=== PATIENT | female | born 1940 | race Caucasian/White ===

== ENCOUNTER → 2016-11-13 | Outpatient (CLI) | payer MEDICARE, OTHER ==
--- NOTE | 2016-11-13 15:57 | BD ---
EXAMINATION TYPE: MG DEXA axial skeleton. DATE OF EXAM: 11/13/2016 COMPARISON: 09.29.2004 CLINICAL HISTORY: Z78.0 POST MENOPAUSAL STATE Height: 63.3 Weight: 232 FRAX RISK QUESTIONS: Alcohol (3 or more units per day): NO Family History (Parent hip fracture): NO Glucocorticoids (More than 3mos): YES (Ex: prednisone, prednisolone, methylprednisolone, dexamethasone, and hydrocortisone). History of Fracture in Adulthood: NO Secondary Osteoporosis: NO 1. Type 1 Diabetes: NO 2. Hyperthyroidism: NO 3. Menopause before 45: YES 4. Malnutrition: NO 5. Chronic liver disease: NO Rheumatoid Arthritis: NO Current Tobacco Use: NO RISK FACTORS HISTORY OF: Active: YES Diet low in dairy products/other sources of calcium: NO Postmenopausal woman: HYST AT AGE 40 Lost more than 2 inches in height since high school: YES POSSIBLY Hyperparathyroidism: NO Adrenal Insufficiency: NO MEDICATIONS: Prednisone or other steroids: SEASONAL ASTHMA, STEROID INHALER WHEN NEEDED How Long: FOR YRS Additional Medications: BP MEDS, ORAL DIABETIC MEDS, STATINS FOR CHOLESTEROL, HEART BURN MEDCATION Additional History: DIABETIC, EXAM MEASUREMENTS: Bone mineral densitometry was performed using the [employer] System. Bone mineral density as measured about the Lumbar spine is: ----- L1-L4(G/cm2): 1.318 T Score Values are as follows: ----- L1: 0.7 ----- L2: 0.7 ----- L3: 0.3 ----- L4: 2.8 ----- L1-L4: 1.1 Bone mineral density FIRST SCAN OF HER SPINE AT [facility] Bone mineral density about the R hip (g/cm2): 0.985 Bone mineral density about the L hip (g/cm2): 1.000 T Score values are as follows: -----R Neck: -0.7 -----L Neck: -0.7 -----R Total: -0.2 -----L Total: -0.1 Bone mineral density has: Decreased -11.1% since study of: 09.29.2004 FRAX %'S: THERE IS A 8.4% CHANCE OF A MAJOR OSTEOPOROTIC FX AND A 1.1% CHANCE OF A HIP FX.....PRO BABILITY IN 10/YRS TIME IMPRESSION: Normal (Values between +1 and -1 indicate normal bone mass). Consider repeating this study in 5 year s or sooner if there is some new clinical indication FOR BOTH OF HER HIPS AND HER LUMBAR SPINE. Bone density is diminished 11.1% within the bilateral hips from prior study. NOTE: T-SCORE=SD OF THE YOUNG ADULT MEAN.
== END | disposition home or self-care (01) ==
LOC: RADBDWWP 07:04
PROVIDERS: ATTEND Family Medicine
DX: Z78.0 Asymptomatic menopausal state (principal)
CPT/HCPCS: 77080

== ENCOUNTER 2017-12-02 06:32 | Day surgery (SDC) | payer MEDICARE, OTHER ==
[2017-11-30 10:54] VITALS: BMI 38.2
[~2017-12-02 06:32] MED LIST: LACTATED RINGERS 1,000 ML IV SCH
[2017-12-02] MEDS ORDERED: LACTATED RINGERS 1,000 ML IV ONE (06:45)
[2017-12-02 07:01] VITALS: RESP 16; TEMP 98.6
[2017-12-02 07:15] LABS: Glucose,Whole Blood 123 mg/dL (75-99)
[2017-12-02] MEDS ORDERED: LIDOCAINE 1% INJ 10MG/ML (20 ML MDV) ONE (07:47)
[2017-12-02] MEDS ORDERED: PROPOFOL 10 MG/ML 20 ML VIAL IV ONE (07:47)
--- NOTE | 2017-12-02 08:19 | P.PCN ---
Date of Procedure: 12/02/17 Procedure(s) Performed: Procedure: Total colonoscopy. Preoperative diagnosis: Screening for neoplasia, patient has history of polyps. Postoperative diagnosis: Exam within normal limits. Preparation: HalfLytely prep. Sedation: Was provided by anesthesia. Brief clinical history: The patient is 77-year-old female who is scheduled for this evaluation because of history of polyps. Her last exam was in 2012. She has no abdominal complaints, bleeding or anemia. Procedure: With the patient on her left lateral decubitus position and after informed consent and adequate sedation, the perianal area was inspected and it did not show any fissures or fistulas. There were no masses felt on digital rectal examination. The Olympus CFQ 160L video colonoscope was then inserted in the rectum in the usual fashion and advanced to the cecum. The preparation was less than ideal but I spent some time washing and suctioning thick fecal secretions in various areas. The mucosa appeared healthy. No obvious pathology was noted including any polyps, tumors or any obvious diverticular disease. The patient tolerated the procedure well. Plan: The patient was reassured. She will follow-up with you as planned. At her age, I did not recommend further surveillance and screening and future examinations can be kept as a contingency based on her overall course and health.
[2017-12-02 08:57] VITALS: BP 155/84; PULSE 75
== END 2017-12-02 09:27 | disposition home or self-care (01) ==
LOC: ORWHC2ENDO 06:32
DX: Z12.11 Encounter for screening for malignant neoplasm of colon (principal); Z86.010 Personal history of colon polyps; E11.9 Type 2 diabetes mellitus without complications; J45.909 Unspecified asthma, uncomplicated; K21.9 Gastro-esophageal reflux disease without esophagitis; I10 Essential (primary) hypertension; E78.5 Hyperlipidemia, unspecified; I25.2 Old myocardial infarction; Z95.5 Presence of coronary angioplasty implant and graft; Z79.84 Long term (current) use of oral hypoglycemic drugs; Z79.82 Long term (current) use of aspirin; Z79.899 Other long term (current) drug therapy; Z88.5 Allergy status to narcotic agent; Z88.1 Allergy status to other antibiotic agents
CPT/HCPCS: J2001; J2704; G0121

== ENCOUNTER → 2018-11-14 | Outpatient (CLI) | payer MEDICARE, OTHER ==
--- NOTE | 2018-11-15 18:40 | BD ---
EXAMINATION TYPE: Axial Bone Density DATE OF EXAM: 11/14/2018 COMPARISON: 11/13/2016 CLINICAL HISTORY: 78-year-old female postmenopausal screening Height: 63.5 IN Weight: 230 LBS FRAX RISK QUESTIONS: Secondary Osteoporosis: 3. Menopause before 45: YES HYSTERECTOMY BEFORE 45 RISK FACTORS HISTORY OF: Active: YES Diet low in dairy products/other sources of calcium: SOMEWHAT SEVERAL SERVINGS A WEEK Postmenopausal woman: YES Lost more than 2 inches in height since high school: POSSIBLY STATES WAS 5'6" AT ONE TIME MEDICATIONS: Additional Medications: DIABETES MEDS, BABY ASPIRIN, OCUVITE, VITAMINS, LIPITOR, JANUMET, LOSARTAN EXAM MEASUREMENTS: Bone mineral densitometry was performed using the [employer] System. Bone mineral density as measured about the Lumbar spine is: ----- L1-L4(G/cm2): 1.294 T Score Values are as follows: ----- L2: 1.0 ----- L3: 0.8 ----- L4: 1.4 ----- L1-L4: 0.9 Bone mineral density has: Decreased -1.7% since study of: 11/13/2016 Bone mineral density about the R hip (g/cm2): 0.910 Bone mineral density about the L hip (g/cm2): 0.968 T Score values are as follows: -----R Neck: -0.9 -----L Neck: -0.5 -----R Total: -0.4 -----L Total: -0.4 Bone mineral density has: Decreased -3.7% since study of: 11/13/2016 IMPRESSION: Normal (Values between +1 and -1 indicate normal bone mass). Consider repeating this study in 5 year s or sooner if there is some new clinical indication. NOTE: T-SCORE=SD OF THE YOUNG ADULT MEAN.
== END | disposition home or self-care (01) ==
LOC: RADBDWWP 09:56
PROVIDERS: ATTEND Family Medicine
DX: Z78.0 Asymptomatic menopausal state (principal)
CPT/HCPCS: 77080

== ENCOUNTER 2021-01-20 18:45 | Emergency (ER) | payer MEDICARE, OTHER ==
[2021-01-20 19:44] VITALS: BP 158/73; PULSE 62; RESP 18; TEMP 97.8
[2021-01-20] MEDS ORDERED: LIDOCAINE 1% INJ 10MG/ML (20 ML MDV) SQ ONE (20:27)
[2021-01-20] MEDS ORDERED: TOPICAL SKIN ADHESIVE 1 EACH AMP TOPICAL STA (20:28)
--- NOTE | 2021-01-20 20:30 | ED ---
General Adult HPI - General Chief complaint: Wound/Laceration Stated complaint: finger lac Time Seen by Provider: 01/20/21 20:27 Source: patient, RN notes reviewed Mode of arrival: ambulatory Limitations: no limitations - History of Present Illness Initial comments: 80-year-old female presents to the emergency room for a chief complaint of laceration. Patient was putting a mandolin and a box when she cut her fingers. Patient cut her left second and left third finger pads. States the left third finger pad is very shallow however the left second finger pad is deeper. Tetanus is up-to-date 2 years ago. Patient does not take blood thinners aside from aspirin.Patient has no other complaints at this time including shortness of breath, chest pain, abdominal pain, nausea or vomiting, headache, or visual changes. - Related Data Home Medications Medication Instructions Recorded Confirmed Felodipine [Felodipine ER] 10 mg PO DAILY 05/24/14 12/02/17 Tolterodine ER [Detrol LA] 4 mg PO DAILY 05/24/14 12/02/17 glipiZIDE [Glucotrol XL] 10 mg PO DAILY 05/24/14 12/02/17 sitaGLIPtin PHOS/metFORMIN HCL 1 tab PO BID 05/24/14 12/02/17 [Janumet 50-1,000 mg Tablet] Fexofenadine HCl 180 mg PO DAILY PRN 11/11/15 12/02/17 Multivitamins, Thera [Multivitamin] 1 tab PO DAILY 11/11/15 11/30/17 Vits A,C,E/Lutein/Minerals 1 tab PO DAILY 11/11/15 12/02/17 [Ocuvite with Lutein Tablet] Cod Liver Oil 1 each PO DAILY 11/30/17 11/30/17 Krill Oil 500 mg PO DAILY 11/30/17 11/30/17 L.acidoph,Paracasei, B.lactis 1 each PO DAILY 11/30/17 11/30/17 [Probiotic] Turmeric Root Extract [Turmeric] 500 mg PO DAILY 11/30/17 11/30/17 Previous Rx's Medication Instructions Recorded Aspirin 81 mg PO DAILY #30 chew 11/13/15 Atorvastatin [Lipitor] 80 mg PO HS #30 tab 11/13/15 Losartan [Cozaar] 25 mg PO DAILY #30 tab 11/13/15 Metoprolol Tartrate [Lopressor] 25 mg PO BID #60 tab 11/13/15 Nitroglycerin Sl Tabs [Nitrostat] 0.4 mg SUBLINGUAL Q5M PRN #25 tab 11/13/15 Allergies Allergy/AdvReac Type Severity Reaction Status Date / Time codeine Allergy stomach Verified 01/20/21 19:41 cramps Tetracyclines Allergy rash,yeast Verified 01/20/21 19:41 infection Review of Systems ROS Statement: Those systems with pertinent positive or pertinent negative responses have been documented in the HPI. ROS Other: All systems not noted in ROS Statement are negative. 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 Last Myocardial Infarction Date:: 2015 History of Any Multi-Drug Resistant Organisms: None Reported Past Surgical History: Cholecystectomy, Heart Catheterization With Stent, Hysterectomy, Orthopedic Surgery, Tonsillectomy Additional Past Surgical History / Comment(s): bilateral shoulder surgeries, colonoscopy with benign polypectomy, hemorrhoidectomy, Past Anesthesia/Blood Transfusion Reactions: No Reported Reaction, Motion Sickness Additional Past Anesthesia/Blood Transfusion Reaction / Comment(s): Pt states she had blood transfusion after childbirth. Date of Last Stent Placement:: 11/11/15 Past Psychological History: No Psychological Hx Reported Smoking Status: Never smoker Past Alcohol Use History: None Reported Past Drug Use History: None Reported - Past Family History Father History Unknown: Yes Additional Family Medical History / Comment(s): Pt states she does not know her father's history. Mother Family Medical History: Cancer Additional Family Medical History / Comment(s): Mother of lung cancer. Pt unsure at what age. Sister(s) Family Medical History: Cancer General Exam Limitations: no limitations General appearance: alert, in no apparent distress Head exam: Present: atraumatic Eye exam: Present: normal appearance, PERRL, EOMI. Absent: scleral icterus, conjunctival injection ENT exam: Present: normal exam, mucous membranes moist Neck exam: Present: normal inspection, full ROM. Absent: tenderness Respiratory exam: Present: normal lung sounds bilaterally. Absent: respiratory distress, wheezes Cardiovascular Exam: Present: regular rate, normal rhythm, normal heart sounds Extremities exam: Present: other (Patient has a 1 cm laceration of the left second digit finger pad. She has a superficial laceration of the left third digit finger pad as well. Full range of motion of all digits.) Course Vital Signs 01/20/21 19:41 Temperature 97.8 F Pulse Rate 62 Respiratory 18 Rate Blood Pressure 158/73 O2 Sat by Pulse 98 Oximetry Procedures - Laceration Laceration #1 Consent Obtained: verbal consent Indication: laceration Site: hand (Left second digit) Size (cm): 2 Description: linear Depth: simple, single layer Anesthetic Used: lidocaine 1% Anesthesia Technique: nerve block Amount (mls): 4 Pre-repair: wound explored, irrigated extensively Type of Sutures: nylon Size of Sutures: 5-0 Number of Sutures: 6 Technique: simple, interrupted Patient Tolerated Procedure: well, no complications Laceration #2 Consent Obtained: verbal consent Indication: laceration Site: hand (Left third digit) Size (cm): 1 Description: linear Depth: simple, single layer Pre-repair: wound explored, irrigated extensively Type of Sutures: other (exofin) Patient Tolerated Procedure: well, no complications Medical Decision Making - Medical Decision Making Small laceration noted of the left second digit. This was irrigated and repaired with simple interrupted sutures. A small laceration of the finger pad of the left third digit was repaired with Exofin and Steri-Strip applied. This did not require sutures and patient did not want sutures. Patient is up-to-date on tetanus. Antibiotic ointment applied. Patient will be discharged home to follow up with primary care. Return parameters and care provider as discussed. Disposition Clinical Impression: Laceration Disposition: HOME SELF-CARE Condition: Good Instructions (If sedation given, give patient instructions): Laceration (ED) Additional Instructions: Please follow up with primary care in 1-2 days. Keep clean with gentle soap and water. You may apply antibiotic ointment. Return to the emergency room for any worsening symptoms or signs of infection. return in 7-10 days for suture removal Is patient prescribed a controlled substance at d/c from ED?: No Referrals: Lavelle Marinelli MD [Primary Care Provider] - 1-2 days Time of Disposition: 21:36
--- NOTE | 2021-01-20 20:43 | XR ---
EXAMINATION TYPE: XR finger LT DATE OF EXAM: 01/20/2021 COMPARISON: NONE HISTORY: Laceration TECHNIQUE: 3 views FINDINGS: I see no fracture nor dislocation. Joint spaces are normal. There is small laceration defec t of the soft tissues at the tuft of the distal phalanx of the index finger on the lateral aspect. IMPRESSION: Small laceration defect. No fracture.
[2021-01-20] MEDS ORDERED: BACITRACIN OINT 1 EACH PACKET TOPICAL STA (21:33)
== END 2021-01-20 21:53 | disposition home or self-care (01) ==
LOC: EC 18:45
DX: S61.211A Laceration without foreign body of left index finger without damage to nail, initial encounter (principal); S61.213A Laceration without foreign body of left middle finger without damage to nail, initial encounter; J45.909 Unspecified asthma, uncomplicated; E11.9 Type 2 diabetes mellitus without complications; I10 Essential (primary) hypertension; I25.2 Old myocardial infarction; Z88.5 Allergy status to narcotic agent; Z88.1 Allergy status to other antibiotic agents; Z79.84 Long term (current) use of oral hypoglycemic drugs; Z79.899 Other long term (current) drug therapy; W27.4XXA Contact with kitchen utensil, initial encounter
CPT/HCPCS: 73140; 99283; 12002; J2001

== ENCOUNTER 2021-09-30 05:37 | Day surgery (SDC) | payer MEDICARE, OTHER ==
[2021-09-30] MEDS ORDERED: ASPIRIN 325 MG TAB PO STA (06:28)
[2021-09-30] MEDS ORDERED: ALPRAZolam 0.5 MG TAB PO PRN (06:28)
[2021-09-30] MEDS ORDERED: ALPRAZolam 0.25 MG TAB PO PRN (06:28)
[2021-09-30] MEDS ORDERED: NITROGLYCERIN SL TABS 0.4 MG TAB SUBLINGUAL PRN ×2 (06:28→09:00)
[2021-09-30] MEDS: SODIUM CHLORIDE 0.9% 1,000 ML in EMPTY BAG 1 BAG IV SCH ×2 (06:30→17:07)
[2021-09-30] MEDS ORDERED: ASPIRIN 81 MG ONE (06:38)
[2021-09-30 06:41] LABS: Glucose,Whole Blood 61 mg/dL (75-99)
[2021-09-30] MEDS ORDERED: fentaNYL (PF) 50 MCG/ML 2 ML AMP ONE (06:59)
[2021-09-30] MEDS ORDERED: BENZOCAINE SPRAY 1 CAN MUCOUS MEM ONE (07:15)
[2021-09-30] MEDS ORDERED: IV FLUID CONTINUATION 1,000 ML IV ONE (07:17)
[2021-09-30] MEDS ORDERED: VERAPAMIL 2.5 MG/ML 2 ML AMP ONE (07:20)
[2021-09-30] MEDS ORDERED: MIDAZOLAM 2 MG/2 ML VIAL IV ONE ×2 (07:24→07:26)
[2021-09-30] MEDS ORDERED: fentaNYL (PF) 50 MCG/ML 2 ML AMP IV ONE (07:24)
[2021-09-30] MEDS ORDERED: HEPARIN SODIUM 1,000 UN/ML (10ML VL) ONE (07:41)
--- NOTE | 2021-09-30 07:44 | P.PCN ---
Date of Procedure: 09/30/21 Description of Procedure: Indication: Evaluation for aortic valve Procedure Description: After explaining the procedure to the patient, it's risk and complications, blood pressure, heart rate and O2 saturation were monitored. The throat was sprayed with Cetacaine. Patient received 3 mg intravenous Versed, 50 mcg intravenous fentanyl. The probe was introduced into the esophagus without difficulty. Images were obtained. Following that, the probe was removed. There was no immediate complication. Findings: Left atrial size is mildly dilated, left atrial appendage is normal. Left ventricle size is normal. Inferior wall hypokinesis was noted. Ejection fraction estimated at 45-50%. Mitral annulus calcification was noted. The aortic valve is severely calcified with decreased opening by planimetry the aortic valve area is 0.6 - 0.9 cm. Descending thoracic aorta appears to be normal. No pericardial effusion was noted. Contrast bubble study revealed no shunting across the intra-atrial septum. Doppler: Pulse wave and color Doppler were obtained and revealed mild to moderate mitral and aortic regurgitation with mild tricuspid regurgitation. The peak gradient across the aortic valve was 71 to mercury with a mean of 47 mmHg. There was no shunting by color Doppler study. Conclusion: 1. Dilated left atrium 2. Normal left ventricle size with mild systolic dysfunction and segmental wall motion abnormality 3. Severe aortic stenosis with [id number] aortic regurgitation 4. [id number] mitral was mild tricuspid regurgitation 5. No shunting across the intra-atrial septum
[2021-09-30] MEDS ORDERED: LIDOCAINE 1% INJ 10MG/ML (30 ML VIAL-PF) SQ ONE ×2 (08:06→08:07)
[2021-09-30] MEDS: LIDOCAINE 1% INJ 10MG/ML (30 ML VIAL-PF) SQ ONE ×2 (08:07→08:09)
[2021-09-30] MEDS ORDERED: VERAPAMIL SYRINGE (5 MG/10 ML) INTRAARTER ONE (08:08)
[2021-09-30] MEDS: HEPARIN SODIUM 1,000 UN/ML (10ML VL) IV ONE ×2 (08:22→08:30)
[2021-09-30 08:31] LABS: O2 Sat Blood Gas 71.8 %
[2021-09-30] MEDS ORDERED: CLOPIDOGREL 75 MG TAB ONE (08:31)
[2021-09-30 08:32] LABS: O2 Sat Blood Gas 95.7 %
[2021-09-30 08:33] LABS: O2 Sat Blood Gas 73.4 %
[2021-09-30] MEDS ORDERED: CLOPIDOGREL 75 MG TAB PO ONE (08:33)
[2021-09-30] MEDS ORDERED: IOPAMIDOL-370 125ML BTL INJ ONE (08:52)
[2021-09-30] MEDS ORDERED: SODIUM CHLORIDE 0.9% 1,000 ML in EMPTY BAG 1 BAG IV SCH (09:00)
[2021-09-30] MEDS ORDERED: MAG HYDROX/AL HYDROX/SIMETH 30 ML CUP PO PRN (09:00)
[2021-09-30] MEDS ORDERED: ATROPINE SULFATE 0.1 MG/ML 10ML SYRINGE IV PRN (09:00)
[2021-09-30] MEDS ORDERED: ZOLPIDEM 5 MG TAB PO PRN (09:00)
[2021-09-30] MEDS ORDERED: RX INFO: IV CONTRAST WAS GIVEN 1 EACH MISC MISCELLANE PRN (09:00)
--- NOTE | 2021-09-30 09:13 | P.CARDCATH ---
Date of Procedure: 09/30/21 Description of Procedure: Cardiac Catheterization: The patient is an 81-year-old female with a known history of CAD who was found to have progressive severe aortic stenosis with symptoms of progressive dyspnea. Recommendations were made regarding cardiac catheterization, the risks and the complications were discussed with the patient who is in full understanding and agreement. 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 Using Xylocaine Anesthesia and Seldinger technique, a 6-Azeri sheath was introduced in the right radial artery . Using the guidewire exchange technique the venous sheath in the right brachial vein was exchanged to a 6-Azeri sheath. Right heart catheterization was performed using [place]-Damien catheter, multiple pressure and samples were obtained. Cardiac output by thermodilution was calculated. Subsequently, selective coronary angiography performed using a 5-Azeri 3.5 bend left Zeus and Humberto catheter. Multiple views of the coronary artery incl uding hemiaxial views were obtained. The Humberto catheter was used to cross the aortic valve and LVEDP was calculated. Following that, catheter were removed. Of note, the patient received a total of 5000 units of intravenous heparin as well as intra-arterial verapamil. There was no immediate complications. Findings: Fluoroscopy: Severe calcification of the aortic valve was noted Left main: This is a large size vessel, bifurcating into left anterior descending and left circumflex, left main has no high-grade stenosis LAD: This is a size vessel, reaching to the apex with a wrap around the apex segment. The LAD has 30-40% plaque in the midsegment. It is calcified. Left circumflex: This is a nondominant vessel, giving rise to 3 obtuse marginal branch. The second obtuse marginal branch is subtotally occluded with slow distal flow RCA: This is a dominant vessel, moderate in caliber. Bifurcating into PDA and PLV. The stented segment proximally is patent with no significant in-stent restenosis. The mid RCA has a 50% plaque aggressive the vessel has no high- grade stenosis [Left] Ventriculogram: Was not performed Hemodynamics: Cardiac output by Danna 7.5 L/m, by thermodilution 4.2. Pulmonary artery saturation 72%, right atrium 73%, arterial 96%. Pulmonary artery systolic pressure of 40 with a diastolic of 25 and a mean of 34 mmHg. Pulmonary capillary wedge pressure A wave of 22 V wave of 24 with a mean of 25 mmHg. Right ventricle systolic pressure 40, end-diastolic of 12 mmHg. Right atrium A wave of 9, V wave of 10 with a mean of 10 mmHg. LVEDP 25 mmHg. Left ventricle systolic pressure 195 mmHg with the ascending aortic pressure of 150 mmHg. Aortic valve area 0.53 cm. Conclusion: 1. Severe calcified aortic stenosis. 2. Patent stents in the RCA with mild to moderate disease in the midsegment of the right coronary artery 3. Subtotally occluded OM 2 4. Mild to moderate disease in the LAD Recommendations: I have recommended to proceed with angioplasty and stenting of the left circumflex OM 2. The procedure as well as the risks and the complications were discussed with the patient who was in full understanding and agreement.
--- NOTE | 2021-09-30 09:17 | P.CARDCATH ---
Date of Procedure: 09/30/21 Description of Procedure: PERCUTANEOUS TRANSLUMINAL CORONARY ANGIOPLASTY CLINICAL INFORMATION: The patient is an 81-year-old female with a known history of coronary disease who presented with progressive severe aortic stenosis, underwent cardiac catheterization and was found to have severe stenosis in the OM 2 Recommendations were made regarding coronary angioplasty and stenting. The procedure as well as the risks and the complications were discussed with the patient who was in full understanding and agreement. PROCEDURE: A 6 Bulgarian FL 3-1/2 guiding catheter was introduced into the system. After cannulating the left main, a 0.014 BMW was advanced across the lesion with the help of straight supra cross microcatheter and positioned distally. Following that a 2.25 x 12 mm Treck was advanced and one inflation at 8 saumya was done. Following that a 2.25 x 15 stent was deployed. It was dilated at 16. After the last inflation, after appropriate wait, the balloon and the guidewire were withdrawn back into the guiding catheter. Images were obtained and repeated. Those images reveal stable successful stenting. At that point, the guiding catheter, the balloon, and guidewire were removed. The sheath was removed. Hemostasis was obtained with and deployment of a TR band and compression of the right brachial vein. There were no immediate complications. The patient was returned to the room in stable condition. Of note, the patient received additional 2000 units of heparin as well as Plavix. She had no chest discomfort or EKG changes with the inflations. Her ACT was monitored RESULTS: Successful stenting of the obtuse marginal 2 with reduction of stenosis from 99 % to 0 %. RECOMMENDATIONS: Patient will continue on dual antiplatelet treatment with aspirin and Plavix for 6 months. She'll be evaluated for aortic valve replacement in view of the severe aortic stenosis. The findings and recommendations were discussed with the patient and her family and they are in full understanding and agreement. Duration of sedation 48 minutes.
[2021-09-30] MEDS: ASPIRIN 81 MG PO SCH (10:51)
[2021-09-30 12:12] VITALS: BMI 37.0
[2021-09-30] MEDS ORDERED: ATORVASTATIN 80 MG TAB PO SCH (21:00)
[2021-09-30] MEDS: METOPROLOL TARTRATE 25 MG TAB PO SCH (21:41)
[2021-10-01] MEDS: SODIUM CHLORIDE 0.9% 1,000 ML in EMPTY BAG 1 BAG IV SCH (02:02)
--- NOTE | 2021-10-01 07:17 | P.PN ---
Subjective Progress Note Date: 10/01/21 PROGRESS NOTE The patient is an 81-year-old female with a known history of coronary disease aortic stenosis who presented with symptoms of progressive dyspnea. Underwent cardiac catheterization and CAMERON, was found to have severe aortic stenosis was subtotally occluded OM 2. She underwent stenting of the OM in preparation for aortic valve replacement. She's feeling well this morning, denies any chest discomfort dizziness or palpitations. She continues to be on aspirin, Glucotrol, felodipine 10 mg daily, Plavix 75 mg daily, Lipitor 80 mg daily, losartan 25 mg a day. PHYSICAL EXAMINATION: Blood pressure 140/70 heart rate 60 LUNGS: Clear to auscultation HEART: Regular rate and rhythm, S1, S2. No S3. systolic murmur ejection murmur 3/6 at the base ABDOMEN: Soft, nontender, no organomegaly EXTREMETIES: No edema, right radial pulse intact, small ecchymosis in the brachial area LAB: Pending IMPRESSION: 1. Status post stenting of the left circumflex obtuse marginal branch 2 2. Moderate disease in the LAD and the RCA 3. Severe aortic stenosis 4. Hypertension PLAN: The patient will be discharged home today, she'll be followed as an outpatient and further evaluated in regard to her aortic valve disease. The findings and recommendations were discussed with the patient and she is in understanding and agreement. Objective - Vital Signs Vital signs: Vital Signs Temp 98.2 F 10/01/21 00:31 Pulse 95 10/01/21 00:31 Resp 17 10/01/21 02:00 BP 170/56 10/01/21 00:31 Pulse Ox 95 10/01/21 00:31 FiO2 Intake & Output 09/30/21 10/01/21 10/01/21 18:59 06:59 18:59 Intake Total 270 118 Balance 270 118 Weight 100.9 kg Intake: IV 270 Intake, IV Titration 0 Amount IV Fluid Continuation 1, 0 000 ml @ 0 mls/hr IV .STK -MED ONE Rx#:[id number] Oral 118 Other: Voiding Method Toilet # Voids 2
[2021-10-01 07:46] LABS: African American GFR (CKD) 47 (>60 ml/min/1.73 sqM); Anion Gap 7 mmol/L; Blood Urea Nitrogen 21 mg/dL (7-17); Calcium 8.5 mg/dL (8.4-10.2); Carbon Dioxide 22 mmol/L (22-30); Chloride 109 mmol/L (98-107); Glucose 96 mg/dL (74-99); Non-African American GFR(CKD) 41 (>60 ml/min/1.73 sqM); Potassium 4.3 mmol/L (3.5-5.1); Sodium 138 mmol/L (137-145)
[2021-10-01] MEDS: METOPROLOL TARTRATE 25 MG TAB PO SCH (08:13)
[2021-10-01] MEDS: ASPIRIN 81 MG PO SCH (08:13)
[2021-10-01] MEDS ORDERED: amLODIPine 10 MG TAB PO SCH (09:00)
[2021-10-01] MEDS ORDERED: LOSARTAN 25 MG TAB PO SCH (09:00)
[2021-10-01] MEDS ORDERED: CLOPIDOGREL 75 MG TAB PO SCH (09:00)
[2021-10-01] MEDS ORDERED: glipiZIDE 5 MG TAB PO SCH (09:00)
[2021-10-01] MEDS ORDERED: OXYBUTYNIN 10 MG TAB.ER.24 PO SCH (09:00)
[2021-10-01 09:01] VITALS: BP 171/75; PULSE 63; RESP 20; TEMP 97.7
== END 2021-10-01 11:30 | disposition home or self-care (01) ==
LOC: CATHCVL 05:37 → 6NMEDSUR 08:53 → CATHCVL 10-01 11:30
PROVIDERS: ATTEND Internal Medicine Interventional Cardiology
DX: I08.2 Rheumatic disorders of both aortic and tricuspid valves (principal); I25.10 Atherosclerotic heart disease of native coronary artery without angina pectoris; I25.5 Ischemic cardiomyopathy; E11.22 Type 2 diabetes mellitus with diabetic chronic kidney disease; I12.9 Hypertensive chronic kidney disease with stage 1 through stage 4 chronic kidney disease, or unspecified chronic kidney disease; N18.9 Chronic kidney disease, unspecified; E78.2 Mixed hyperlipidemia; E78.00 Pure hypercholesterolemia, unspecified; Z95.5 Presence of coronary angioplasty implant and graft; Z20.822 Contact with and (suspected) exposure to COVID-19; Z87.891 Personal history of nicotine dependence; Z79.899 Other long term (current) drug therapy; Z79.82 Long term (current) use of aspirin; Z79.84 Long term (current) use of oral hypoglycemic drugs; Z88.1 Allergy status to other antibiotic agents; Z90.710 Acquired absence of both cervix and uterus; Z90.49 Acquired absence of other specified parts of digestive tract; Z98.890 Other specified postprocedural states
CPT/HCPCS: 93312; 93320; 93325; 93460; 80048; 85018; 82810; 87635; C9600; C1769 ×3; C1887 ×2; C1894; C1725; C1751; C1874; J2250; J2001; J3010; J1644; Q9967

== ENCOUNTER 2021-10-16 07:02 | Outpatient (CLI) | payer MEDICARE, OTHER ==
[2021-10-16 07:27] VITALS: BP 185/78; RESP 16; TEMP 97.9
[2021-10-16 07:40] LABS: Glucose,Whole Blood 92 mg/dL (70-110)
[2021-10-16 08:15] LABS: Basophils # (A) 0.1 k/uL (0-0.2); Basophils % (A) 1 %; Eosinophils # (A) 0.4 k/uL (0-0.7); Eosinophils % (A) 4 %; HCT 40.5 % (34.0-46.0); HGB 13.1 gm/dL (11.4-16.0); Lymphocytes # (A) 3.1 k/uL (1.0-4.8); Lymphocytes % (A) 33 %; MCH 30.5 pg (25.0-35.0); MCHC 32.3 g/dL (31.0-37.0); MCV 94.5 fL (80.0-100.0); Mean Platelet Volume 8.8; Monocytes # (A) 0.5 k/uL (0-1.0); Monocytes % (A) 6 %; Neutrophils # (A) 5.3 k/uL (1.3-7.7); Neutrophils % (A) 55 %; Platelet Count 300 k/uL (150-450); RBC 4.28 m/uL (3.80-5.40); RDW 13.4 % (11.5-15.5); WBC 9.5 k/uL (3.8-10.6)
[2021-10-16 08:21] LABS: ALT 19 U/L (4-34); AST 22 U/L (14-36); African American GFR (CKD) 37 (>60 ml/min/1.73 sqM); Albumin/Globulin Ratio 1.4; Alkaline Phosphatase 82 U/L (38-126); Anion Gap 12 mmol/L; Appearance,Urine Clear (Clear); Bilirubin,Urine Negative (Negative); Blood Urea Nitrogen 30 mg/dL (7-17); Blood,Urine Negative (Negative); Calcium 8.9 mg/dL (8.4-10.2); Carbon Dioxide 26 mmol/L (22-30); Chloride 103 mmol/L (98-107); Color,Urine Yellow; Globulin 2.8 g/dL; Glucose 99 mg/dL (74-99); Glucose,Urine (UA) Negative (Negative); Ketones,Urine Negative (Negative); Leukocyte Esterase,Urine Negative (Negative); Magnesium 1.2 mg/dL (1.6-2.3); Nitrite,Urine Negative (Negative); Non-African American GFR(CKD) 32 (>60 ml/min/1.73 sqM); Potassium 3.9 mmol/L (3.5-5.1); Protein,Urine Negative (Negative); Sodium 141 mmol/L (137-145); Specific Gravity,Urine 1.018 (1.001-1.035); Total Bilirubin 0.4 mg/dL (0.2-1.3); Total Protein 6.8 g/dL (6.3-8.2); Urobilinogen,Urine <2.0 mg/dL (<2.0)
[2021-10-16 08:36] LABS: Partial Thromboplastin Time 23.1 sec (22.0-30.0); Prothrombin Time 10.7 sec (9.0-12.0)
[2021-10-16 10:50] LABS: Hepatitis A Antibody IgM Nonreactive (Nonreactive); Hepatitis B Core IgM Nonreactive (Nonreactive); Hepatitis B Surface Antigen Nonreactive (Nonreactive); Hepatitis C IgG Antibody Nonreactive (Nonreactive)
--- NOTE | 2021-10-16 12:29 | US ---
EXAMINATION TYPE: US carotid duplex BILAT DATE OF EXAM: 10/16/2021 COMPARISON: NONE CLINICAL HISTORY: aortic valve. EXAM MEASUREMENTS: RIGHT: Peak Systolic Velocity (PSV) cm/sec ----- Right CCA: 74.7 ----- Right ICA: 53.1 ----- Right ECA: 63.7 ICA/CCA ratio: 0.7 RIGHT: End Diastole cm/sec ----- Right CCA: 9.7 ----- Right ICA: 6.1 ----- Right ECA: 2.5 LEFT: Peak Systolic Velocity (PSV) cm/sec ----- Left CCA: 70.2 ----- Left ICA: 66.2 ----- Left ECA: 56.1 ICA/CCA ratio: 0.9 LEFT: End Diastole cm/sec ----- Left CCA: 6.6 ----- Left ICA: 10.6 ----- Left ECA: 0.0 VERTEBRALS (direction of flow): Right Vertebral: Antegrade Left Vertebral: Antegrade Rhythm: Normal No significant stenosis . No significant plaquing or intimal thickening is evident. IMPRESSION: 1. No significant flow-limiting stenosis based on velocities. Criteria for Assigning % of Stenosis / Diameter reduction (Estimation based on the indirect measurements of the internal carotid artery velocities (ICA PSV). 1. Normal (no stenosis)=ICA PSV < 125 cm/s: ratio < 2.0: ICA EDV<40 cm/s. 2. Less than 50% stenosis=ICA PSV < 125 cm/s: ratio < 2.0: ICA EDV<40 cm/s. 3. 50 to 69% stenosis=ICA PSV of 125 to 230 cm/s: ration 2.0 ? 4.0: ICA EDV 40-100 cm/s. 4. Greater than 70% stenosis to near occlusion= ICA PSV > 230 cm/s: ratio > 4.0: ICA EDV > 100 cm/s. 5. Near occlusion= ICA PSV velocities may be low or undetectable: variable ratio and ICA EDV. 6. Total occlusion=unable to detect flow.
--- NOTE | 2021-10-16 13:19 | CT ---
EXAMINATION TYPE: CT TAVR Planning DATE OF EXAM: 10/16/2021 HISTORY: Nonrheumatic aortic insufficiency CT DLP: 2775.3 mGycm Automated Exposure Control for Dose Reduction was Utilized. CONTRAST: CT scan of the chest, abdomen and pelvis is performed with IV Contrast, patient injected with 125 mL of Isovue 370. COMPARISON: No previous CT scan is available for comparison TECHNIQUE: Helical imaging obtained through the chest, abdomen and pelvis during arterial phase alexander arabella administration of radiographic contrast intravenously. 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 Underlying lesion cannot be excluded. Right thyroid lobe hypodensities, for correlation with thyroid ultrasound results. Lungs: Bilateral lower lobe peripheral pulmonary articulations. Central Airway: No significant findings Pleura: No significant findings Pulmonary Arteries: No significant findings Heart and Pericardium: Dilated left atrium and left ventricle. Coronary and arterial atherosclerotic calcifications. Normal branching anatomy of the aortic arch. Lymph Nodes: No pathologically enlarged lymph nodes. Mediastinum & Esophagus: No significant findings ABDOMEN/PELVIS: Please note arterial phase of the imaging limits detailed evaluation of the solid abdominal organs. Liver: No significant findings Spleen: No significant findings Kidneys: Questionable right renal cyst without suspicious feature. Adrenal Glands: No significant findings Pancreas: 16 mm cyst is seen in the uncinate process of the pancreas which could represent an IPMN. T his can be further assessed by MRI of the pancreas. Gallbladder: Previous cholecystectomy. Bowel and Mesentery: No significant findings Lymph Nodes: No significant findings Urinary Bladder: No significant findings Pelvic Organs: Previous hysterectomy. No gross adnexal mass. Other: Scattered arterial atherosclerotic calcifications. Focal stenosis of the proximal portion of t he superior mesenteric artery yet patent distally. Degenerative changes of the visualized spine. Other Lines/Tubes/Devices/Hardware: Dental work is noted. IMPRESSION: Preoperative planning CT demonstrating incidental findings and recommendations as detaile d above.
[2021-10-16 14:31] LABS: Chol/HDL Ratio 2.65 Ratio; LDL Cholesterol,Calculated 66.9 mg/dL (0.0-131.0); VLDL Calculation 19.04 mg/dL (5.00-40.00)
== END 2021-10-16 15:21 | disposition home or self-care (01) ==
LOC: LABWHC1 07:02
PROVIDERS: ATTEND Thoracic Surgery (Cardiothoracic Vascular Surgery)
DX: Z01.818 Encounter for other preprocedural examination (principal); I35.0 Nonrheumatic aortic (valve) stenosis; R55 Syncope and collapse; E87.8 Other disorders of electrolyte and fluid balance, not elsewhere classified; R58 Hemorrhage, not elsewhere classified; E07.9 Disorder of thyroid, unspecified; R35.0 Frequency of micturition; E11.9 Type 2 diabetes mellitus without complications; N28.9 Disorder of kidney and ureter, unspecified; E78.5 Hyperlipidemia, unspecified; Z79.01 Long term (current) use of anticoagulants; Z79.899 Other long term (current) drug therapy
CPT/HCPCS: 94150; 84439; 83880; 80061; 80053; 80074; 84443; 83735; 85025; 85610; 85730; 81003; 87086; 83036; 93880; 71275; 74174; 36415; Q9967

== ENCOUNTER → 2022-10-16 | Outpatient (CLI) | payer MEDICARE, OTHER ==
[2022-10-16 16:11] LABS: INR 0.9 (<1.2); Prothrombin Time 10.1 sec (9.0-12.0)
[2022-10-16 16:20] LABS: Partial Thromboplastin Time 21.3 sec (22.0-30.0)
[2022-10-16 21:18] LABS: ALT 16 U/L (8-44); AST 17 U/L (13-35); Albumin 4.1 d/dL (3.8-4.9); Albumin/Globulin Ratio 1.58 Ratio (1.60-3.17); Alkaline Phosphatase 83 U/L (41-126); Blood Urea Nitrogen 33.6 mg/dL (9.0-27.0); Calcium 9.7 mg/dL (8.7-10.3); Carbon Dioxide 21.2 mmol/L (21.6-31.8); Chloride 105 mmol/L (96-109); Globulin 2.6 d/dL (1.6-3.3); Glucose 73 mg/dL (70-110); Potassium 5.2 mmol/L (3.5-5.5); Sodium 144 mmol/L (135-145); Total Bilirubin 0.3 mg/dL (0.3-1.2); Total Protein 6.7 d/dL (6.2-8.2)
[2022-10-16 21:38] LABS: Basophils # (A) 0.07 X 10*3/uL (0.00-0.10); Basophils % (A) 0.8 %; Eosinophils # (A) 0.34 X 10*3/uL (0.04-0.35); Eosinophils % (A) 3.7 %; HCT 40.2 % (37.2-46.3); HGB 12.6 d/dL (12.0-15.0); Lymphocytes # (A) 1.73 X 10*3/uL (0.90-5.00); Lymphocytes % (A) 18.7 %; MCH 29.9 pg (27.0-32.0); MCHC 31.3 d/dL (32.0-37.0); MCV 95.5 FL (80.0-97.0); Mean Platelet Volume 11.5 FL (9.5-12.2); Monocytes # (A) 0.69 X 10*3/uL (0.20-1.00); Monocytes % (A) 7.5 %; NRBC Per 100 WBC 0 X 10*3/uL (0.00-0.01); Neutrophils # (A) 6.39 X 10*3/uL (1.80-7.70); Neutrophils % (A) 68.9 %; Platelet Count 299 X 10*3/uL (140-440); RBC 4.21 X 10*6/uL (4.10-5.20); RDW 13.7 % (11.5-14.5); WBC 9.26 X 10*3/uL (4.50-10.00)
== END | disposition home or self-care (01) ==
LOC: LABPAT 12:36
PROVIDERS: ATTEND Thoracic Surgery (Cardiothoracic Vascular Surgery)
DX: Z01.812 Encounter for preprocedural laboratory examination (principal); Z51.81 Encounter for therapeutic drug level monitoring; I10 Essential (primary) hypertension; I35.0 Nonrheumatic aortic (valve) stenosis; Z79.899 Other long term (current) drug therapy; Z79.01 Long term (current) use of anticoagulants; E11.9 Type 2 diabetes mellitus without complications; R00.1 Bradycardia, unspecified; R94.31 Abnormal electrocardiogram [ECG] [EKG]
CPT/HCPCS: 80053; 85025; 85610; 85730; 93005

== ENCOUNTER 2022-10-21 05:34 | Inpatient (IN) | payer MEDICARE, OTHER ==
[2022-10-21] MEDS ORDERED: INSULIN REGULAR 100 UNIT in SODIUM CHLORIDE 0.9% 100 ML IV PRN (06:00)
[2022-10-21] MEDS ORDERED: PROTAMINE SULFATE 250 MG in EMPTY BAG 1 BAG IV PRN (06:00)
[2022-10-21] MEDS ORDERED: LACTATED RINGERS 1,000 ML IV SCH ×2 (06:00→09:54)
[2022-10-21] MEDS ORDERED: METOPROLOL TARTRATE 25 MG TAB PO ONE (06:00)
[2022-10-21] MEDS ORDERED: CLOPIDOGREL 75 MG TAB PO ONE (06:00)
[2022-10-21] MEDS ORDERED: CLEVIDIPINE BUTYRATE 25 MG in EMPTY BAG 1 BAG IV PRN (06:00)
[2022-10-21] MEDS ORDERED: ASPIRIN 325 MG TAB PO ONE (06:00)
[2022-10-21] MEDS ORDERED: TRANEXAMIC ACID 2,000 MG in SODIUM CHLORIDE 0.9% 80 ML IV PRN (06:00)
[2022-10-21] MEDS ORDERED: ATORVASTATIN 10 MG TAB PO ONE (06:00)
[2022-10-21] MEDS ORDERED: NITROGLYCERIN-D5W PMX 25 MG/250 ML BTL IV PRN (06:00)
[2022-10-21] MEDS ORDERED: ELECTROLYTE-A SOLUTION 1,000 ML with POTASSIUM CHLORIDE 100 MEQ, MAGNESIUM SULFATE 16 M... IV PRN ×5 (06:00)
[2022-10-21] MEDS ORDERED: SODIUM CHLORIDE 0.9% 500 ML 500 ML INTRAARTER PRN (06:00)
[2022-10-21 06:34] LABS: Glucose,Whole Blood 93 mg/dL (70-110)
[2022-10-21] MEDS ORDERED: SODIUM CHLORIDE 0.9% 1,000 ML IV ONE (06:37)
[2022-10-21] MEDS ORDERED: MIDAZOLAM 2 MG/2 ML VIAL ONE (07:45)
[2022-10-21] MEDS ORDERED: PROTAMINE SULFATE 10 MG/ML 5 ML VIAL IV ONE (07:45)
[2022-10-21] MEDS ORDERED: fentaNYL (PF) 50 MCG/ML 2 ML AMP ONE (07:45)
[2022-10-21] MEDS ORDERED: ROCURONIUM 10 MG/ML (5 ML VIAL) IV ONE (07:45)
[2022-10-21] MEDS ORDERED: GLYCOPYRROLATE 0.2 MG/ML 2 ML VIAL ONE (07:45)
[2022-10-21] MEDS ORDERED: NEOSTIGMINE 1 MG/ML 10 ML VIAL ONE (07:45)
[2022-10-21] MEDS ORDERED: LIDOCAINE 2% INJ 20 MG/ML (2 ML VIAL) ONE (07:45)
[2022-10-21] MEDS ORDERED: SUCCINYLCHOLINE CHLORIDE 200 MG/10 ML VIAL IV ONE (07:45)
[2022-10-21] MEDS ORDERED: HEPARIN SODIUM,PORCINE 10,000 UNIT/ML 1 ML VIAL ONE (07:45)
[2022-10-21] MEDS ORDERED: PROPOFOL 10 MG/ML 20 ML VIAL IV ONE (07:45)
[2022-10-21] MEDS ORDERED: IOPAMIDOL-250 100ML BTL INTRAARTER ONE (08:57)
[2022-10-21] MEDS ORDERED: IOPAMIDOL-370 100ML BTL INJ ONE (09:07)
--- NOTE | 2022-10-21 09:19 | P.ANPRN ---
Procedure Note - Anesthesia - CAMERON Intraop Pre Bypass CAMERON Intraop - Anesthesia Indication: aortic stenosis Date of Procedure: 10/21/22 Pre-operative Diagnosis: Aortic Stenosis Post-operative Diagnosis: Aortic Stenosis s/p TAVR Surgeon: Zackary Betancur Left Ventricle: mild LVH Ejection Fraction: Other (40-45) Regional Wall Motion Abnormalities: Other (mild inferior hypokinesis) Left Ventricle Hypertrophy: Yes (mild) Right Ventricle: wnl R. Ventricle Function: Normal Aortic Valve: p 74 mean 39 CLAUDIA 0.4 Severe stenosis Anatomy: Trileaflet Aortic Stenosis: Severe Aortic Regurgitation: Moderate Mitral Stenosis: None Mitral Regurgitation: Moderate Tricuspid Stenosis: None Tricuspid Regurgitation: Trace Pulmonic Stenosis: None Pulmonic Regurgitation: None Aortic Dissection: No Plural Effusion: None
--- NOTE | 2022-10-21 09:21 | P.ANPRN ---
Procedure Note - Anesthesia - CAMERON Intraop Post Bypass CAMERON Intraop Post Bypass Procedure Performed: TAVR Left Ventricle: unchanged Ejection Fraction: Other (unchanged 40-45%) Regional Wall Motion Abnormalities: Other (unchanged mild inferior hypokinesis) R. Ventricle Function: Normal Aortic Valve: m5 peak 9 deployed aortic valve with good valve opening Mitral Valve: Unchanged Tricuspid: Unchanged Pulmonic: Unchanged Aortic Dissection: No
[2022-10-21 09:31] LABS: Glucose,Whole Blood 103 mg/dL (70-110)
[2022-10-21] MEDS ORDERED: DEXTROSE 50% SYRINGE 50 ML IVP PRN ×2 (09:54)
[2022-10-21] MEDS ORDERED: IPRATROPIUM-ALBUTEROL 3 ML NEB INHALATION PRN (09:54)
[2022-10-21] MEDS ORDERED: ACETAMINOPHEN TAB 325 MG TAB PO PRN (09:54)
[2022-10-21] MEDS ORDERED: ONDANSETRON 4 MG/2 ML VIAL IVP PRN (09:54)
--- NOTE | 2022-10-21 10:00 | XR ---
EXAMINATION TYPE: XR chest 1V DATE OF EXAM: 10/21/2022 9:48 AM COMPARISON: Chest radiographs from 11/11/2015 TECHNIQUE: XR chest 1V Frontal view of the chest. CLINICAL INDICATION:Female, 82 years old with history of Line placement; FINDINGS: Lungs/Pleura: No evidence of focal consolidation or pneumothorax. Blunting of the costophrenic angles is present. Pulmonary vascularity: Unremarkable. Heart/mediastinum: Cardiomediastinal silhouette is enlarged and stable. Post aortic valve repair vamshi nges. Atherosclerosis of the aortic arch. Musculoskeletal: No acute osseous pathology. Other findings: None Lines/Tubes: Cardiac conduction leads project over the right ventricle. IMPRESSION: Cardiac conduction leads project over the right ventricle. Cardiomegaly with suspected bilateral pleural effusions.
--- NOTE | 2022-10-21 10:16 | P.PCN ---
Date of Procedure: 10/21/22 Operative Findings: TRANSCATHETER AORITC VALVE REPLACEMENT OPERATIVE REPORT PROCEDURE PERFORMED: 1. Percutaneous Aortic Valve Implantation using a 26 mm Oates Jesus valve 2. Transesophageal echocardiography (performed by anesthesia) 3. Ultrasound guided access and repair of bilateral femoral artery access site by Perclose closure device. 4. Placement of temporary pacemaker wire. 5. Aortic root angiography 6. Selective bilateral common femoral artery angiogram and ultrasound guided access of bilateral femoral arteries INDICATIONS: 1. An 80 year-old with a history of severe symptomatic aortic valve stenosis. The patient was experiencing shortness of breath consistent with NYHA class II PERFORMING PHYSICIANS: 1. Dominick Esparza MD Interventional Cardiology. 2. Zackary Betancur MD, MD, Cardiothoracic Surgeon. SEDATION: General anesthesia provided by anesthesia, see separate note APPROACH: Bilateral femoral artery via percutaneous approach PROCEDURE DESCRIPTION: The patient was discussed at valve clinic with multidisciplinary approach with cardiothoracic surgeon as well as polish compounder and thought better treated with TAVR. Risks, benefits, and alternatives of the procedure had been explained to the patient who understood the risks and agreed to proceed. After consents were obtained, patient was brought to the transcatheter aortic valve implantation room in the cardiac supervisor laboratory and general anesthesia was provided by the anesthesiologist (see separate report). Once full body sterile prep was performed, right subclavian venous access was obtained and a temporary pacemaker was screwed in, performed by cardiothoracic surgery. Pacing threshholds were checked and deemed appropriate. Next the left femoral artery waw accessed using a modified Seldinger technique, ultrasound guidance and micropuncture technique. A 6 Hong Konger Rabi sheath was placed in the left femoral artery. Next, a 6-Hong Konger pigtail catheter was advanced into the aorta and positioned in the aortic root, aortic root angiography was performed to determine optimal deployment angle. The right femoral artery was accessed using modified Seldinger technique, micropuncture technique and under direct ultrasound guidance. Femoral angiogram was done showing access in the common femoral artery and a 6Fr sheath was placed. Next preclose technique was performed using a two Perclose. Next a 0.035 Safari wire was placed in the Aorta via a pigtail catheter. Over the wire we placed a 14 Fr Oates sheath . Next a 6F- AL1 catheter was advanced over a wire to the aortic root. A straight wire was advanced through the catheter and used to cross the severely stenotic valve. The AL1 was then exchanged for a 6Fr pigtail catheter and pressure measurements were obtained. The 0.035 Lunderquist wire was then positioned in the apex. Next a 26 mm Oates Jesus was advanced. The valve was then positioned across the aortic valve and confirmed with aortic root angiography.The valve was then deployed in proper position using slow deployment and with rapid pacing in conjuncture with aortic root angiography and CAMERON. The delivery system was withdrawn back into the arch and then a CAMERON demonstrated a satisfactory result. There was no para valvular leak. There was no evidence of any other significant abnormalities. The preclose Perclose was then deployed in the right femoral artery and hemostasis was achieved. Right femoral angiogram from the left groin was performed and showed good hemostasis was moderate disease involving the right common femoral artery. The left femoral angiogram demonstrated an arteriotomy in the common femoral artery and this was repaired using a 6F angioseal device with complete hemostasis. The temporary venous pacemaker was sutured in place. The patient was then transported to the ICU in hemodynamically stable condition, requiring no pressor support. COMPLICATIONS: None RECOMMENDATIONS: The patient will be monitored in the ICU for hemodynamic and electrical stability.
[2022-10-21 10:21] LABS: Basophils % (A) 0 %; Eosinophils # (A) 0.3 k/uL (0-0.7); Eosinophils % (A) 3 %; HCT 36.7 % (34.0-46.0); HGB 11.7 gm/dL (11.4-16.0); Lymphocytes # (A) 2.9 k/uL (1.0-4.8); Lymphocytes % (A) 24 %; MCHC 31.8 g/dL (31.0-37.0); MCV 94.4 fL (80.0-100.0); Mean Platelet Volume 8.6; Monocytes # (A) 0.6 k/uL (0-1.0); Monocytes % (A) 5 %; Neutrophils # (A) 7.9 k/uL (1.3-7.7); Neutrophils % (A) 67 %; Platelet Count 205 k/uL (150-450); RBC 3.89 m/uL (3.80-5.40); RDW 13.3 % (11.5-15.5); WBC 11.8 k/uL (3.8-10.6)
[2022-10-21] MEDS: OXYBUTYNIN 10 MG TAB.ER.24 PO SCH (10:22)
[2022-10-21] MEDS: LOSARTAN 50 MG TAB PO SCH (10:22)
[2022-10-21 10:28] LABS: Ionized Calcium 5.1 mg/dL (4.5-5.3)
[2022-10-21 10:33] LABS: INR 1.1 (<1.2); Partial Thromboplastin Time 29.1 sec (22.0-30.0); Prothrombin Time 11.1 sec (9.0-12.0)
[2022-10-21 10:38] LABS: ALT 17 U/L (4-34); AST 28 U/L (14-36); African American GFR (CKD) 39 (>60 ml/min/1.73 sqM); Albumin 3.3 g/dL (3.5-5.0); Alkaline Phosphatase 76 U/L (38-126); Anion Gap 11 mmol/L; Blood Urea Nitrogen 28 mg/dL (7-17); Calcium 8.4 mg/dL (8.4-10.2); Carbon Dioxide 20 mmol/L (22-30); Chloride 109 mmol/L (98-107); Glucose 136 mg/dL (74-99); Magnesium 1.4 mg/dL (1.6-2.3); Non-African American GFR(CKD) 34 (>60 ml/min/1.73 sqM); Potassium 4.2 mmol/L (3.5-5.1); Sodium 140 mmol/L (137-145); Total Bilirubin 0.6 mg/dL (0.2-1.3); Total Protein 5.8 g/dL (6.3-8.2)
[2022-10-21] MEDS: amLODIPine 10 MG TAB PO SCH (11:08)
--- NOTE | 2022-10-21 12:14 | P.OP ---
Date of Procedure: 10/21/22 Preoperative Diagnosis: Tricuspid calcific aortic stenosis Postoperative Diagnosis: Same Procedure(s) Performed: Transcatheter aortic valve replacement with Sapien3 29 mm valve Implants: Oaets's Sapien3 29mm valve Anesthesia: GETA Surgeon: Zackary Betancur (Cardiovascular surgeon) Sheeter Machine Operator #1: Dominick Esparza (operational risk analyst) Estimated Blood Loss (ml): 15 Pathology: none sent Condition: stable Disposition: ICU Indications for Procedure: 82-year-old female with long-standing severe aortic valvular stenosis. She has been followed in our high risk valve clinic for some time. She is recently developed symptomatology of shortness of breath and was therefore scheduled for transcatheter valvular implantation. She was felt to be high risk for surgical valve replacement given her age, morbid obesity, medical conditions and level of activity. Operative Findings: Tricuspid aortic stenosis with significant gradient across the aortic valve. Valve was implanted at good level with no evidence of paravalvular leak and excellent valve function. Hemostasis of the groins was excellent with good completion angiography without evidence of leak narrowing or outflow disease. Description of Procedure: Patient was brought to the catheterization laboratory. General anesthesia was induced. CAMERON probe was placed. Anterior torso and bilateral groins were sterilely prepped and draped. 18-gauge needle was used to puncture the right subclavian vein and a guidewire threaded into the right atrium. Introducer and dilator were placed in a screw-in ventricular lead was advanced to the apex of the right ventricle and screwed in. The vessels were below 1 V. Lead was secured at the exit site from the skin with 2-0 silk suture ligatures. Bilateral femoral arterial access was obtained under fluoroscopic guidance. On the left a long 6-Kazakh sheath was advanced into the descending thoracic aorta just distal to the aortic arch. Pigtail catheter was placed through this and positioned in the non-coronary cusp of the aortic valve. On the right extremity sheath was placed and then Perclose devices were deployed in the right femoral artery. 8-Kazakh sheath was placed. This was exchanged for a 14-Kazakh Oates sheath over a stiff wire. Patient was systemically heparinized and ACT maintained greater than 250. The aortic valve was crossed from the right with a straight wire and a pigtail catheter positioned in the apex of the ventricle. Transvalvular gradients were measured. Oates Sapien3 was loaded on the back table and brought up on the field. Pigtail catheter was exchanged for a stiff wire which was positioned in the apex the left ventricle. Valve delivery system was advanced over the stiff wire into the descending thoracic aorta. The ball oon was pulled back into the valve and then the valve delivery system was advanced around the aortic arch and across the aortic valve. Pusher was pulled back. Valve was appropriately positioned and deployed under rapid ventricular pacing. Valve deployment proceeded without difficulty. Delivery system and wire were pulled back into the descending thoracic aorta and the valve was examined under CAMERON. It was noted to be well expanded in perfect position with no evidence of paravalvular leak. Heparin was not reversed with protamine. Valve delivery system and then the sheath were removed and the 2 Perclose devices tightened with good hemostasis. Completion angiography demonstrated excellent flow through the common femoral artery on the right with no evidence of leak and no evidence of outflow obstruction. Left sided sheath was then removed and hemostasis obtained with direct pressure. Patient was extubated and transferred to the ICU in stable condition. 29 mm valve
[2022-10-21 12:23] VITALS: BMI 34.2
[2022-10-21] MEDS: MAGNESIUM SULFATE-D5W PMX 1 GM in DEXTROSE/WATER 1 100ML.BAG IVPB SCH ×2 (12:53→14:17)
[2022-10-21] MEDS: BENZOCAINE/MENTHOL LOZENG 1 EACH LOZENGE MUCOUS MEM PRN ×2 (12:53→17:16)
[2022-10-21 13:03] LABS: Glucose,Whole Blood 154 mg/dL (70-110)
[2022-10-21] MEDS: INSULIN ASPART (NovoLOG) 100 UNIT/ML VIAL SQ SCH ×3 (13:03→22:24)
[2022-10-21 16:57] LABS: Glucose,Whole Blood 188 mg/dL (70-110)
[2022-10-21] MEDS: METOPROLOL TARTRATE 25 MG TAB PO SCH (20:34)
[2022-10-21] MEDS ORDERED: ATORVASTATIN 80 MG TAB PO SCH (21:00)
[2022-10-21 22:18] LABS: Glucose,Whole Blood 141 mg/dL (70-110)
[2022-10-21] MEDS: HEPARIN SODIUM,PORCINE/PF 5,000 UNIT/0.5 ML SYRINGE SQ SCH (23:13)
[2022-10-22 04:40] LABS: Basophils % (A) 0 %; Eosinophils # (A) 0.2 k/uL (0-0.7); Eosinophils % (A) 2 %; HGB 11.7 gm/dL (11.4-16.0); Lymphocytes # (A) 1.2 k/uL (1.0-4.8); Lymphocytes % (A) 12 %; MCH 29.8 pg (25.0-35.0); MCHC 31.7 g/dL (31.0-37.0); MCV 94.1 fL (80.0-100.0); Mean Platelet Volume 9.1; Monocytes # (A) 0.8 k/uL (0-1.0); Monocytes % (A) 7 %; Neutrophils # (A) 7.9 k/uL (1.3-7.7); Neutrophils % (A) 77 %; Platelet Count 181 k/uL (150-450); RBC 3.93 m/uL (3.80-5.40); RDW 13.6 % (11.5-15.5); WBC 10.3 k/uL (3.8-10.6)
[2022-10-22 04:45] LABS: Ionized Calcium 5.2 mg/dL (4.5-5.3)
[2022-10-22 04:53] LABS: ALT 25 U/L (4-34); AST 38 U/L (14-36); African American GFR (CKD) 50 (>60 ml/min/1.73 sqM); Albumin 3.1 g/dL (3.5-5.0); Alkaline Phosphatase 89 U/L (38-126); Anion Gap 5 mmol/L; Blood Urea Nitrogen 21 mg/dL (7-17); Calcium 8.9 mg/dL (8.4-10.2); Carbon Dioxide 24 mmol/L (22-30); Chloride 108 mmol/L (98-107); Glucose 106 mg/dL (74-99); Non-African American GFR(CKD) 43 (>60 ml/min/1.73 sqM); Potassium 4.4 mmol/L (3.5-5.1); Sodium 137 mmol/L (137-145); Total Bilirubin 0.4 mg/dL (0.2-1.3); Total Protein 5.6 g/dL (6.3-8.2)
[2022-10-22] MEDS: INSULIN ASPART (NovoLOG) 100 UNIT/ML VIAL SQ SCH (05:33)
--- NOTE | 2022-10-22 06:59 | XR ---
EXAMINATION TYPE: XR chest 1V portable DATE OF EXAM: 10/22/2022 5:21 AM COMPARISON: Chest radiographs from 10/21/2022 TECHNIQUE: XR chest 1V portable Portable AP radiograph of the chest. CLINICAL INDICATION:Female, 82 years old with history of Post Operative Cardiac Surgery; FINDINGS: Lungs/Pleura: There is no evidence of pleural effusion, focal consolidation, or pneumothorax. Pulmonary vascularity: Unremarkable. Heart/mediastinum: Cardiomediastinal silhouette is enlarged and stable. Post aortic valve repair vamshi nges. Atherosclerosis of the aortic arch. Musculoskeletal: No acute osseous pathology. Degenerative changes of the thoracic spine. Other: Cholecystectomy clips in the right upper quadrant. Cardiac conduction lead projects over the r ight ventricle. IMPRESSION: Stable examination without radiographic evidence for an acute process.
[2022-10-22] MEDS ORDERED: PANTOPRAZOLE 40 MG TABLET PO SCH (07:30)
[2022-10-22] MEDS ORDERED: ASPIRIN 81 MG PO SCH (09:00)
[2022-10-22] MEDS ORDERED: FUROSEMIDE 20 MG TAB PO SCH (09:00)
[2022-10-22] MEDS ORDERED: LINAGLIPTIN 5 MG TABLET PO SCH (09:00)
[2022-10-22] MEDS ORDERED: CLOPIDOGREL 75 MG TAB PO SCH (09:00)
[2022-10-22] MEDS ORDERED: amLODIPine 10 MG TAB PO SCH (09:00)
[2022-10-22] MEDS ORDERED: FLUCONAZOLE 150 MG TAB PO SCH (09:00)
[2022-10-22] MEDS: HEPARIN SODIUM,PORCINE/PF 5,000 UNIT/0.5 ML SYRINGE SQ SCH (09:39)
[2022-10-22] MEDS: LOSARTAN 50 MG TAB PO SCH (09:40)
[2022-10-22] MEDS: OXYBUTYNIN 10 MG TAB.ER.24 PO SCH (09:41)
[2022-10-22] MEDS: METOPROLOL TARTRATE 25 MG TAB PO SCH (09:41)
[2022-10-22] MEDS: amLODIPine 10 MG TAB PO SCH (09:41)
--- NOTE | 2022-10-22 11:13 | CA ---
Transthoracic Echo Report Name: Qiana Gaston Age: 82 Gender: F : 1940 Exam Date: 10/22/2022 08:59 Exam Location: [facility] Ht (in): 65 Wt (lb): 205 Ordering Physician: Cely Martinez Attending/Referring Phys: [id number] Hoskins Rug Weaver Breana Bloom [facility] Procedure CPT: Indications: post TAVR Cardiac Hx: Technical Quality: Technically difficult study Contrast 1: Total Dose (mL): Contrast 2: Total Dose (mL): MEASUREMENTS (Male / Female) Normal Values 2D ECHO LV Diastolic Diameter PLAX 5.1 cm 4.2 - 5.9 / 3.9 - 5.3 cm LV Systolic Diameter PLAX 4.0 cm IVS Diastolic Thickness 1.2 cm 0.6 - 1.0 / 0.6 - 0.9 cm LVPW Diastolic Thickness 1.2 cm 0.6 - 1.0 / 0.6 - 0.9 cm LV Relative Wall Thickness 0.5 LVOT Diameter 2.1 cm Ascending Aorta Diameter 3.1 cm M-MODE Aortic Root Diameter MM 2.5 cm LA Systolic Diameter MM 5.0 cm LA Ao Ratio MM 2.0 AV Cusp Separation MM 1.7 cm DOPPLER AV Peak Velocity 205.8 cm/s AV Peak Gradient 16.9 mmHg AV Mean Velocity 153.2 cm/s AV Mean Gradient 10.5 mmHg AV Velocity Time Integral 42.2 cm LVOT Peak Velocity 105.6 cm/s LVOT Peak Gradient 4.5 mmHg LVOT Velocity Time Integral 22.5 cm LVOT Stroke Volume 75.3 cm??? LVOT Stroke Volume Index 37.7 ml/m??? LVOT Cardiac Index 2364.8 cm???/min???m??? AV Area Cont Eq vti 1.8 cm??? AV Area Cont Eq pk 1.7 cm??? MV Peak Velocity 100.4 cm/s MV Peak Gradient 4.0 mmHg MV Mean Velocity 69.0 cm/s MV Mean Gradient 2.1 mmHg MV Velocity Time Integral 32.0 cm MR Peak Velocity 551.8 cm/s MR Peak Gradient 121.8 mmHg Mitral E Point Velocity 56.7 cm/s Mitral A Point Velocity 80.8 cm/s Mitral E to A Ratio 0.7 MV Deceleration Time 345.9 ms TR Peak Velocity 291.0 cm/s TR Peak Gradient 33.9 mmHg Right Atrial Pressure 8.0 mmHg Pulmonary Artery Systolic Pressu 41.9 mmHg Right Ventricular Systolic Press 38.9 mmHg FINDINGS Left Ventricle Mildly increased left ventricular wall thickness. Mild left ventricular dilatation. Left ventricular ejection fraction is estimated at 40%. Moderately reduced global left ventricular systolic function . Probable inferobasal lateral hypokinesia Right Ventricle Right ventricle not well visualized. Mild pulmonary hypertension. Right Atrium Right atrium not well visualized. Left Atrium Moderate left atrial dilatation. Mitral Valve Mitral valve thickened. Mild mitral annular calcification. [id number] mitral regurgitation. Aortic Valve Normally functioning bioprosthetic aortic valve without stenosis with a peak velocity of 2 m/s, peak gradient 17 mmHg, mean gradient 10 mmHg, and estimated aortic valve area of 1.8 cm???. Tricuspid Valve Structurally normal tricuspid valve. Mild-moderate tricuspid regurgitation. Pulmonic Valve Structurally normal pulmonic valve. Mild pulmonic regurgitation. Pericardium No pericardial effusion. Aorta Normal size aortic root and proximal ascending aorta. CONCLUSIONS Left ventricle is mildly enlarged with global decrease in contractility and also has inferolateral hypokinesia. Aortic valve bioprosthesis appears stable without regurgitation. No significant gradient across bioprosthetic aortic valve. Moderate mitral regurgitation mostly central. Right-sided pressures are not well quantified but no significant pulmonary hypertension no pericardial effusion Previewed by: Dr. Clayton Hendrickson MD (Electronically Signed) Final Date: 22 October 2022 11:12
--- NOTE | 2022-10-22 12:33 | P.DS ---
Providers Date of admission: 10/21/22 05:34 Expected date of discharge: 10/22/22 Attending physician: Dominick Esparza Consults: 10/21/22 06:00 Consult to Anesthesia Routine Consulting Provider: Anesthesia,Services Consult Reason/Comments: Cardiac Surgery Pre-Op 10/21/22 09:54 Consult Physician Routine Consulting Provider: Zackary Betancur Consult Reason/Comments: post TAVR Do you want consulting provider notified?: Already Contacted Primary care physician: Jhonny Guadalupedarrius [place] [facility] Course: MEDICAL HISTORY: 1. Calcified aortic valve with severe symptomatic aortic valve stenosis, NYHA class II 2. Coronary artery disease with previous myocardial infarction and PCI 3. Hypertension 4. Hyperlipidemia, treated 5. Type 2 diabetes mellitus 6. Chronic kidney disease 7. Ischemic cardiomyopathy PROCEDURE: 1. Percutaneous aortic valve implantation using a 26 mm Oates Jesus valve under CAMERON and fluoroscopy guidance 2. Transesophageal echocardiography performed by anesthesia 3. Ultrasound-guided access and repair of bilateral femoral artery access site by Perclose closure device 4. Placement of temporary pacemaker wire 5. Aortic root angiography 6. Selective bilateral common femoral artery angiogram and ultrasound guided access of bilateral femoral arteries HISTORY OF PRESENT ILLNESS: This is a 82-year-old female who follows on an ou tpatient basis with Dr. Marinelli for primary care and Dr. Britton for cardiology. She has a known history of severe aortic stenosis and has been symptomatic with increased exertional dyspnea as well as fatigue. She had been referred to structural heart clinic for evaluation for transcatheter aortic valve replacement after heart catheterization and transesophageal echocardiogram were completed, her initial appointment at the structural heart clinic revealed her to be asymptomatic, however she eventually became symptomatic and was referred back to the structural heart clinic for completion of TAVR planning. Echocardiography demonstrated systolic function with EF 45-50%, aortic valve area 0.6 cm with a peak/mean gradient 71/47 mmHg. Heart catheterization showed subtotal occlusion of the left circumflex with PCI to the second obtuse marginal artery in September 2021. After workup was completed STS risk score was calculated along with incremental risk and the patient was felt to be best ser salvatore by transcatheter aortic valve replacement. The usual course of TAVR was discussed in detail the patient, risks and benefits were reviewed, shared decision making between cardiology, surgery, and the patient/family took place, and the patient consented to proceed with the procedure. HOSPITAL COURSE: The patient was brought to the hospital on 10/21/2022, was taken to the extended stay area, prepared in the usual fashion, and subsequently taken to the cardiac catheterization laboratory where Dr. Esparza and Dr. Betancur completed TAVR procedure under general anesthesia with fluoroscopy and CAMERON. The valve was deployed under rapid ventricular pacing and proceeded without event. At the end of the procedure there was mean gradient 5 mmHg, hemodynamics were felt to be acceptable, and there was no evidence of significant perivalvular leak. Upon completion of the procedure the patient was extubated and was transferred to the cardiovascular intensive care unit where she was recovered and monitored hemodynamically. Her oxygen was titrated down, she was tolerating oral diet, her pain was controlled, follow-up TTE demonstrated EF 40%, normally functioning prior prostatic aortic valve without stenosis with peak/mean gradient 17/10 mmHg, no aortic valve regurgitation, and she was ready to be discharged to home on postoperative day #1. She received written and verbal instruction regarding her medications, activity restrictions, signs and symptoms requiring physician notification, and follow-up appointments. Patient Condition at Discharge: Stable Plan - Discharge Summary Discharge Rx Participant: Yes New Discharge Prescriptions: New Sennosides-Docusate Sodium [Senokot-S] 2 each PO HS PRN tab PRN Reason: Constipation Acetaminophen Tab [Tylenol] 650 mg PO Q4HR PRN tab PRN Reason: Fever And/ Or Mild Pain (1-3) Continue sitaGLIPtin PHOS/metFORMIN HCL [Janumet 50-1,000 mg Tablet] 1 tab PO BID glipiZIDE [Glucotrol XL] 2.5 mg PO QAM Felodipine [Plendil] 10 mg PO QAM Aspirin 81 mg PO DAILY #30 chew Atorvastatin [Lipitor] 80 mg PO HS #30 tab Metoprolol Tartrate [Lopressor] 25 mg PO BID #60 tab Turmeric Root Extract [Turmeric] 1,000 mg PO DAILY Losartan [Cozaar] 50 mg PO DAILY Neuriva 1 tab PO DAILY Furosemide [Lasix] 20 mg PO DAILY Oxybutynin ER [Ditropan XL] 10 mg PO DAILY Cinnamon Bark [Cinnamon] 2,000 mg PO DAILY Fluconazole [Diflucan] 150 mg PO Q2D Discontinued Clopidogrel [Plavix] 75 mg PO DAILY #90 tablet Discharge Medication List Felodipine [Plendil] 10 mg PO QAM 05/24/14 [History] glipiZIDE [Glucotrol XL] 2.5 mg PO QAM 05/24/14 [History] sitaGLIPtin PHOS/metFORMIN HCL [Janumet 50-1,000 mg Tablet] 1 tab PO BID 05/24/14 [History] Aspirin 81 mg PO DAILY #30 chew 11/13/15 [Rx] Atorvastatin [Lipitor] 80 mg PO HS #30 tab 11/13/15 [Rx] Metoprolol Tartrate [Lopressor] 25 mg PO BID #60 tab 11/13/15 [Rx] Turmeric Root Extract [Turmeric] 1,000 mg PO DAILY 11/30/17 [History] Losartan [Cozaar] 50 mg PO DAILY 09/29/21 [History] Cinnamon Bark [Cinnamon] 2,000 mg PO DAILY 10/16/22 [History] Fluconazole [Diflucan] 150 mg PO Q2D 10/16/22 [History] Furosemide [Lasix] 20 mg PO DAILY 10/16/22 [History] Neuriva 1 tab PO DAILY 10/16/22 [History] Oxybutynin ER [Ditropan XL] 10 mg PO DAILY 10/16/22 [History] Acetaminophen Tab [Tylenol] 650 mg PO Q4HR PRN tab 10/22/22 [Rx] Sennosides-Docusate Sodium [Senokot-S] 2 each PO HS PRN tab 10/22/22 [Rx] Follow up Appointment(s)/Referral(s): Sonali Britton MD [STAFF PHYSICIAN] - 10/28/22 4:15 pm (Your appointment 10/28 is for groin check. You also have a 30 day post TAVR echo and appointment with Dr. Britton 12/24/22 @ 3 pm, as well as a 1 year post TAVR echo and appointment with Dr. Britton 10/07/23 @ 1 pm) Lavelle Marinelli MD [Primary Care Provider] - [facility] Needed Clinic,Structural Heart [NON-STAFF] - 12/24/22 2:30 pm (Come to the valve clinic 12/24/22 @ 2:30 pm before your appointment with Dr. Britton for 30 day follow up. You also have a valve clinic appointment 10/07/23 @ 12:30 pm before your [address] Britton) Ambulatory/Diagnostic Orders: Complete Blood Count w/diff [LAB.AMB] Location: None Selected Complete Blood Count w/diff [LAB.AMB] Location: None Selected Comprehensive Metabolic Panel [LAB.AMB] Location: None Selected Comprehensive Metabolic Panel [LAB.AMB] Location: None Selected Activity/Diet/Wound Care/Special Instructions: DISCHARGE INSTRUCTIONS: 1. No driving for 1 week, or until physician gives their ok. 2. No lifting, pushing, or pulling more than 5-10 pounds for 1 week. 3. Hold both groins when you cough or sneeze for the next 2 weeks. Bruising is common, but report increased swelling, pain or fever >101F 4. Shower daily. No pool, hot tub, or bathtub for 1 week 5. No powders, lotions, ointments on incisions. 6. No straining, including for bowel movements. Use stool softner if necessary 7. Stairs are not an issue. Go slowly, using handrail and take 1 step at a time. Ambulate several times daily 8. Continue pain control per as needed orders. 9. Take only the medications listed on your discharge form 10. Eat low salt (limited to 2 grams or 2000 milligrams) daily, avoid adding salt, avoid canned/processed foods 11. Take your weight daily in the morning and record, bring with you to your follow up appointments 12. Keep all follow up appointments. You will need a valve clinic appointment at 30 days and 1 year post procedure for follow up 13. You have been referred to and are expected to begin Cardiac Rehab in approximately 4 weeks. 14. You will need antibiotics prior to any dental work, including cleanings, and any surgeries to prevent Endocarditis (bacterial infection in your heart) For any questions or concerns please call your valve coordinators: Cely or Balwinder @ Discharge Disposition: HOME SELF-CARE
[2022-10-22 12:46] VITALS: BP 161/78; PULSE 55; RESP 14; TEMP 97.9
[2022-10-22] MEDS ORDERED: SENNOSIDES-DOCUSATE SODIUM 1 EACH TAB PO SCH (21:00)
== END 2022-10-22 14:30 | disposition home or self-care (01) | DRG 267 ==
LOC: 2ORMAIN 05:34 → 2SICU 09:07
PROVIDERS: ADMIT Internal Medicine Interventional Cardiology; ATTEND Internal Medicine Interventional Cardiology
PROC: 04QL0ZZ Repair Left Femoral Artery, Open Approach (ICD-10-PCS; 2022-10-21)
PROC: 5A1223Z Performance of Cardiac Pacing, Continuous (ICD-10-PCS; 2022-10-21)
PROC: 02HK3JZ Insertion of Pacemaker Lead into Right Ventricle, Percutaneous Approach (ICD-10-PCS; 2022-10-21)
PROC: B3101ZZ Fluoroscopy of Thoracic Aorta using Low Osmolar Contrast (ICD-10-PCS; 2022-10-21)
PROC: B41F1ZZ Fluoroscopy of Right Lower Extremity Arteries using Low Osmolar Contrast (ICD-10-PCS; 2022-10-21)
PROC: B246ZZ4 Ultrasonography of Right and Left Heart, Transesophageal (ICD-10-PCS; 2022-10-21)
PROC: B41F1ZZ Fluoroscopy of Right Lower Extremity Arteries using Low Osmolar Contrast (ICD-10-PCS; 2022-10-21)
PROC: B3101ZZ Fluoroscopy of Thoracic Aorta using Low Osmolar Contrast (ICD-10-PCS; 2022-10-21)
PROC: 02RF38Z Replacement of Aortic Valve with Zooplastic Tissue, Percutaneous Approach (ICD-10-PCS; principal; 2022-10-21 08:00)
PROC: 04QK0ZZ Repair Right Femoral Artery, Open Approach (ICD-10-PCS; 2022-10-21 08:00)
DX: I35.0 Nonrheumatic aortic (valve) stenosis (principal); Z00.6 Encounter for examination for normal comparison and control in clinical research program; E11.22 Type 2 diabetes mellitus with diabetic chronic kidney disease; I12.9 Hypertensive chronic kidney disease with stage 1 through stage 4 chronic kidney disease, or unspecified chronic kidney disease; I25.10 Atherosclerotic heart disease of native coronary artery without angina pectoris; I25.2 Old myocardial infarction; E78.5 Hyperlipidemia, unspecified; N18.9 Chronic kidney disease, unspecified; E66.01 Morbid (severe) obesity due to excess calories; I25.5 Ischemic cardiomyopathy; Z95.5 Presence of coronary angioplasty implant and graft; Z88.5 Allergy status to narcotic agent; Z88.1 Allergy status to other antibiotic agents; Z68.34 Body mass index [BMI] 34.0-34.9, adult
CPT/HCPCS: 33210; 33361; 71045; 80053; 82330; 83735; 85025; 85610; 85730; 86850; 86900; 86901; 86920; 93306; 93312; 93320; 93325